=== PATIENT | female | born 1965 | race Caucasian/White ===

== ENCOUNTER 2019-07-27 10:31 | Day surgery (SDC) | payer BC ==
[2019-07-27] VITALS (11 sets, daily range): BP systolic 81–136; BP diastolic 46–88; PULSE 58–101; TEMP 97.7–98.9
[~2019-07-27] VITALS: Ht 170.2 cm; Wt 66.4 kg
[~2019-07-27 10:31] MED LIST: AMLODIPINE5 MG PO; GLUCOPHAGE500 MG/TAB PO; LISINOPRIL10 MG PO; LISINOPRIL20 MG PO; METFORMIN500 MG PO; NORVASC 5MG5 MG/TAB PO; OMNICEF 300MG300 MG PO; ZYRTEC10 MG PO
[2019-07-27] MEDS ORDERED: ZESTRIL 10MG10 MG PO (10:52)
[2019-07-27 12:48] LABS: ALBUMIN 4.3 gm/dL (3.5-5.0); BILIRUBIN,TOTAL 0.8 mg/dL (0.0-1.0); CALCIUM 9.6 mg/dL (8.4-10.2); CREATININE, serum 0.87 (0.52-1.25); TOTAL PROTEIN 7.1 gm/dL (6.4-8.2)
[2019-07-27] MEDS ORDERED: NORCO 325 MG-51 TAB PO (14:30)
--- NOTE | 2019-07-27 15:00 | NUR ---
Pt to [facility] via cart. Pt drowsy, but awake. Pt rates pain 9/10 to back and having nausea. Pt pale. IV fluid opened wide. VSS. Bandaids to abdomen x4 are clean, dry, and intact. Will continue to monitor.
--- NOTE | 2019-07-27 15:15 | NUR ---
Zofran 4mg IVSP given for nausea. HOB elevated. Will continue to monitor.
--- NOTE | 2019-07-27 15:20 | NUR ---
Fentanyl 25mcg IVSP given for pain per PRN orders.
--- NOTE | 2019-07-27 15:30 | NUR ---
Pt having pain 7/10 to back and abdomen. Pt states "It is starting to feel better." Will continue to monitor.
--- NOTE | 2019-07-27 15:45 | NUR ---
Pt rates pain 2/10 to back and abdomen. Pt states "My nausea is getting better. I can actually rest." HOB lowered for comfort. Will continue to monitor. Call light within reach.
--- NOTE | 2019-07-27 16:15 | NUR ---
Pt sleeping. Respirations even and unlabored. Pt awakens as nurse enters room. Pt rates pain and nausea "2" out of 10. Will continue to monitor. Call light within reach.
--- NOTE | 2019-07-27 16:45 | NUR ---
Pt wanting to try ice chips and crackers. This was provided for her. Pain rate 4/10 at this time. Once she is able to keep down PO food/fluid, PO pain medications can be tried. Pt voices undertanding. Will continue to monitor.
--- NOTE | 2019-07-27 17:21 | NUR ---
PATIENT C/O NAUSEA " I AM JUST MISERABLE AND WANT TO THOW UP" RECEIVED PHENERAGAN 6.25MG IV SLOW PUSH.
--- NOTE | 2019-07-27 17:42 | NUR ---
PATIENT STATED THE NAUSEA IS "SOME BETTER" C/O PAIN 6/10 AND RECEIVED NORCO 5MG 1 TAB PATIENT DROWSY, BUT AWAKENS EASILY.
--- NOTE | 2019-07-27 17:51 | NUR ---
PATIENT STATED THE NAUSEA IS BETTER,BUT CONTINUES TO C/O PAIN. PATIENT DROWSY AND DOESN'T FEEL SHE CAN GO TO BATHROOM AT THIS TIME. PATIENT HAS NOT MET CRITERIA. DR RUBIN CALLED AND UPDATED. OK'D TO MOVE TO FLOOR FOR MORE RECOVERY TIME, BUT CAN STILL BE DISCHARGED. IF SHE HAS NOT MET [facility]ITER[facility] IN A COUPLE HOURS CALL DR RUBIN BACK.
--- NOTE | 2019-07-27 17:55 | NUR ---
PATIENT'S CALLED AND UPDATED ON CONDITION.
--- NOTE | 2019-07-27 18:08 | NUR ---
UPDATED PATIENT THAT WE UPDATED HER .
--- NOTE | 2019-07-27 18:12 | NUR ---
REPORT CALLED TO Iva JEWELL RN PATIENT TAKEN BY CART TO RM [id number].
--- NOTE | 2019-07-27 18:41 | NUR ---
PT TO FLOOR WITH REPORT FROM [facility]. PT ANTOINETTE. LUNGS CLEAR, A/O X3. PT HAS POST OP FOR 3 HRS IN PACU.
--- NOTE | 2019-07-27 19:30 | NUR ---
Report received. 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 A&Ox3-drowsy. Assessment complete. Called to room stating she was ready to try to get up to bathroom. Assisted to bathroom-voided 350mls dark urine. C/O nausea-dry heaving. States she is ready to go home because there is nothing we are doing here that she cant do at home. Discussed discharge and spoke with spouse. Would like to try Zofran first-than discuss going home. Given IV at this time. Will monitor.
--- NOTE | 2019-07-27 19:55 | NUR ---
Called nurses station stating she didnt feel well. Noted to be [id number] the room is spinning. VS complete-blood pressure noted to be 80s/40s-checked manually. IV fluids reinitiated as was INTd for discharge. States shawnee worked for nausea.
--- NOTE | 2019-07-27 20:05 | NUR ---
Dr Rivers notified of change in status-hypotension/nausea. New orders received and initiated.
--- NOTE | 2019-07-27 23:05 | NUR ---
Called with c/o pain to back/shoulder-described as intermittent cramp/ache-rated 10/10 on pain scale. Up to ambulate at this time with stand-by assist. Tolerated well. Teaching completed on gas pain. Verbalizes understanding. Discussed new medication order for tramadol. STates she would like to try one tab as the last pain med she was given made her feel terrible. Tramadol one tab given per dr order. Will monitor.
[2019-07-28 00:10] VITALS: BP 101/63; PULSE 71; TEMP 99.5
--- NOTE | 2019-07-28 01:30 | NUR ---
Called with c/o increased pain. States pain is on right side of abdomen-rating 6/10 on pain scale-described as burning. Tramadol given per dr order.
[2019-07-28 04:01] VITALS: BP 97/61; PULSE 73; TEMP 99
--- NOTE | 2019-07-28 07:30 | NUR ---
Patient in bed resting, eating breakfast. Alert and oriented x 3. Assessment complete. Lap sites x 4 with bandaids are CDI. Denies pain at this time. Patient had multiple questions about low fat diet, print out given to patient. No further questions or needs at this time.
--- NOTE | 2019-07-28 09:00 | NUR ---
Dr. Hinkle in to see patient.
--- NOTE | 2019-07-28 09:40 | NUR ---
Discharge education provided to patient. Educated on signs and symptoms of infection and when to call provider. Educated on follow up appointment and all new medications; medication safety. All questions answered. Denies pain or futher needs at this time. INT to right forarm discontinued, catheter tip intact. Denies further needs at this time. Patient ambulated out with surgical staff.
== END 2019-07-28 09:40 | disposition home or self-care (01) ==
LOC: SDCO 10:31 → SURG 20:27 → SDCO 20:27 → SURG 07-28 09:40 → SDCO 07-28 09:40
PROVIDERS: Surgery
DX: K81.2 Acute cholecystitis with chronic cholecystitis (principal); I10 Essential (primary) hypertension; E11.9 Type 2 diabetes mellitus without complications; Z79.84 Long term (current) use of oral hypoglycemic drugs; Z80.0 Family history of malignant neoplasm of digestive organs; Z88.8 Allergy status to other drugs, medicaments and biological substances
CPT/HCPCS: OP; G0378; J0690; J2370; J2405; J2550; J2704; J3010; J7120